=== PATIENT | female | born 1990 | race Caucasian/White ===

== ENCOUNTER 2021-10-18 23:55 | Emergency (ER) | payer MEDICAID ==
[~2021-10-18] VITALS: Ht 162.6 cm; Wt 59.0 kg
[2021-10-19] MEDS ORDERED: ONDANSETRON HCL 4MG/2ML INJ IV ONE (00:45)
[2021-10-19] MEDS ORDERED: MORPHINE SULFATE 4 MG/ML CPJ (NOT FOR IM USE) IV ONE (00:45)
[2021-10-19] MEDS ORDERED: SODIUM CHLORIDE 0.9% 1,000 ML IV ONE (00:45)
[2021-10-19 01:16] LABS: BASOPHILS % 0.5 % (0.0-2.0); EOSINOPHILS % 1.7 % (0.0-5.0); HEMATOCRIT. 39.4 % (36.0-48.0); HEMOGLOBIN. 13.9 g/dL (12.0-16.0); LYMPHOCYTES % 19.8 % (20.0-50.0); MEAN CORPUSCULAR HEMOGLOBIN 30.9 pg (28.0-32.0); MEAN CORPUSCULAR VOLUME 87.7 fL (81.0-99.0); MEAN PLATELET VOLUME 7.8 fl (7.4-10.4); MONOCYTES % 6.5 % (2.0-8.0); NEUTROPHILS % 71.5 % (40.0-76.0); PLATELET 285 x1000/uL (130-400); RED CELL DISTRIBUTION WIDTH 13.1 % (11.6-14.6)
[2021-10-19 01:21] LABS: CHLORIDE 108 mEq/L (98-107)
[2021-10-19 01:49] LABS: B-HCG QUANTITATIVE 3584 mIU/mL (<3)
[2021-10-19] MEDS ORDERED: METHYLERGONOVINE MALEATE 0.2 MG/ML IM NR (04:30)
[2021-10-19] MEDS ORDERED: METH PO (05:42)
[2021-10-19] MEDS ORDERED: IBUP-2028 MT (05:42)
[2021-10-19 05:50] VITALS: BP 110/72
== END 2021-10-19 06:07 | disposition home or self-care (01) ==
LOC: ER 23:55 → EDBD 23:55 → ER 10-19 06:07
DX: O03.9 Complete or unspecified spontaneous abortion without complication (principal)
CPT/HCPCS: 36415; 76801; 76817; 80048; 84702; 85025; 86850; 86900; 86901; 96361; 96372; 96374; 96375; 99284; J2210; J2270; J2405; J7030